=== PATIENT | female | born 1930 | race Caucasian/White ===

== ENCOUNTER 2017-07-08 08:40 | Emergency (ER) | payer MEDICARE, OTHER ==
[2017-07-08] MEDS: SOD CHLORIDE 0.9% 500 ML IV (09:23)
[2017-07-08] MEDS: NALOXONE (0.4 MG/ML) INJ IV ×2 (09:23→11:23)
[2017-07-08 10:22] LABS: UR BILIRUBIN (Dip) NEGATIVE (NEGATIVE); UR BLOOD (Dip) NEGATIVE (NEGATIVE); UR CLARITY CLOUDY (CLEAR); UR COLOR YELLOW (YELLOW); UR GLUCOSE (Dip) NEGATIVE (NEGATIVE); UR KETONES (Dip) NEGATIVE (NEGATIVE); UR NITRITE (Dip) NEGATIVE (NEGATIVE); UR SPECIFIC GRAVITY (Dip) 1.015 (1.003-1.030); UR TOTAL PROTEIN (Dip) 1+ mg/dl (NEGATIVE)
[2017-07-08 10:23] LABS: ADD UMIC YES; UR ASCORBIC ACID NEGATIVE (NEGATIVE); UR BACTERIA MANY /HPF (NONE SEEN); UR LEUKOCYTE ESTERASE (Dip) 3+ Leu/ul (NEGATIVE); UR MUCUS MANY /HPF (NONE SEEN); UR RBC 4 /HPF (0-5); UR UROBILINOGEN (Dip) NEGATIVE (NEGATIVE); UR WBC > 182 /HPF (0-5)
[2017-07-08] MEDS ORDERED: CEFTRIAXONE 1 GM INJ IM (11:00)
[2017-07-08] MEDS: CEFTRIAXONE 1 GM/50 ML (PMX) 50 ML IVPB (11:03)
== END 2017-07-08 13:01 | disposition home or self-care (01) ==
LOC: E/R 08:40
DX: T40.601A Poisoning by unspecified narcotics, accidental (unintentional), initial encounter (principal); N30.00 Acute cystitis without hematuria; R40.2122 Coma scale, eyes open, to pain, at arrival to emergency department; R40.2242 Coma scale, best verbal response, confused conversation, at arrival to emergency department; R40.2352 Coma scale, best motor response, localizes pain, at arrival to emergency department; I10 Essential (primary) hypertension; I50.9 Heart failure, unspecified; Z96.641 Presence of right artificial hip joint; Z79.82 Long term (current) use of aspirin
CPT/HCPCS: 36415; 70450; 81001; 87086; 96374; 96375; 96376; 99285-25